=== PATIENT | female | born 1985 | race Caucasian/White ===

== ENCOUNTER → 2020-03-27 | Outpatient (CLI) | payer BC ==
[2020-03-27 12:33] LABS: Basophils % (A) 0 %; Eosinophils # (A) 0.1 k/uL (0-0.7); Eosinophils % (A) 2 %; HCT 44.7 % (34.0-46.0); Lymphocytes # (A) 1.9 k/uL (1.0-4.8); Lymphocytes % (A) 34 %; MCH 30.5 pg (25.0-35.0); MCHC 33.5 g/dL (31.0-37.0); MCV 91.1 fL (80.0-100.0); Mean Platelet Volume 6.8; Monocytes # (A) 0.4 k/uL (0-1.0); Monocytes % (A) 7 %; Neutrophils # (A) 2.9 k/uL (1.3-7.7); Neutrophils % (A) 52 %; Platelet Count 271 k/uL (150-450); RBC 4.91 m/uL (3.80-5.40); RDW 13.7 % (11.5-15.5); WBC 5.5 k/uL (3.8-10.6)
== END | disposition home or self-care (01) ==
LOC: LABPAT 11:29
PROVIDERS: ATTEND Obstetrics & Gynecology
DX: Z01.818 Encounter for other preprocedural examination (principal); N92.0 Excessive and frequent menstruation with regular cycle
CPT/HCPCS: 36415; 85025

== ENCOUNTER 2020-03-29 07:55 | Day surgery (SDC) | payer BC ==
[2020-03-27 14:28] VITALS: BMI 32.3
[~2020-03-29 07:55] MED LIST: DEXAMETHASONE SOD PHOSPHATE 4 MG/ML 1 ML VIAL IV ONE; HYDROmorphone 0.5 MG/0.5 ML SYRINGE IVP PRN; LACTATED RINGERS 1,000 ML IV SCH; MIDAZOLAM 2 MG/2 ML VIAL IV PRN; ONDANSETRON 4 MG/2 ML VIAL IVP ONE; Pre Op ABX Message 1 EACH MISC MISCELLANE ONE; SCOPOLAMINE 1.5MG/72HR PATCH TRANSDERM ONE
[2020-03-29] MEDS ORDERED: GLYCOPYRROLATE 0.2 MG/ML 2 ML VIAL ONE (08:56)
[2020-03-29] MEDS ORDERED: KETOROLAC 15 MG/ML 1 ML VIAL ONE (08:56)
[2020-03-29] MEDS ORDERED: SUCCINYLCHOLINE CHLORIDE 100 MG/5 ML SYR IV ONE (08:56)
[2020-03-29] MEDS ORDERED: LIDOCAINE 1% INJ 10MG/ML (20 ML MDV) ONE (08:56)
[2020-03-29] MEDS ORDERED: fentaNYL (PF) 50 MCG/ML 2 ML AMP ONE (08:56)
[2020-03-29] MEDS ORDERED: ROCURONIUM 10 MG/ML (10 ML VIAL) IV ONE (08:56)
[2020-03-29] MEDS ORDERED: NEOSTIGMINE 1 MG/ML 10 ML VIAL ONE (08:56)
[2020-03-29] MEDS ORDERED: MIDAZOLAM 2 MG/2 ML VIAL ONE (08:56)
[2020-03-29] MEDS ORDERED: PROPOFOL 10 MG/ML 20 ML VIAL IV ONE (08:56)
[2020-03-29] MEDS ORDERED: BUPIVACAINE (PF) 0.5% 30 ML VIAL SQ ONE ×2 (09:14→09:27)
[2020-03-29 09:59] VITALS: TEMP 97
[2020-03-29 10:17] VITALS: RESP 16
[2020-03-29] MEDS ORDERED: Acetaminophen-Codeine 300-30mg TAB PO PRN ×2 (10:34)
[2020-03-29] MEDS ORDERED: IBUPROFEN 600 MG TAB PO PRN (10:34)
[2020-03-29] MEDS ORDERED: SIMETHICONE 80 MG CHEWABLE PO PRN (10:34)
[2020-03-29] MEDS ORDERED: KETOROLAC 15 MG/ML 1 ML VIAL IVP PRN (10:34)
[2020-03-29] MEDS ORDERED: METOCLOPRAMIDE 5 MG/ML 2 ML VIAL IVP PRN (10:34)
[2020-03-29] MEDS ORDERED: diphenhydrAMINE 50 MG/ML 1 ML VIAL IVP PRN (10:34)
[2020-03-29] MEDS ORDERED: ONDANSETRON 4 MG/2 ML VIAL IVP PRN (10:34)
[2020-03-29] MEDS ORDERED: LACTATED RINGERS 1,000 ML IV SCH (10:45)
--- NOTE | 2020-03-29 10:45 | P.OP ---
Date of Procedure: 03/29/20 Preoperative Diagnosis: #1. Multiparity #2. Undesired fertility #3. Menorrhagia Postoperative Diagnosis: Same Procedure(s) Performed: #1. Laparoscopic bilateral tubal occlusion with Filshie clips #2. Diagnostic hysteroscopy #3. Dilation and curettage #4. NovaSure endometrial ablation Anesthesia: SHARMIN Surgeon: Clark Woodward Estimated Blood Loss (ml): 5 IV fluids (ml): 600 Urine output (ml): 20 Pathology: other (Endometrial curettings) Condition: stable Disposition: PACU Operative Findings: Preoperative pelvic examination demonstrated a roughly 5 week anteverted mobile normal shaped uterus with normal adnexa bilaterally. These findings were confirmed intraoperatively with normal uterus tubes and ovaries to inspection. There was no evidence of pathology to include endometriosis in the pelvis are otherwise. She did have some adhesions in the right upper quadrant below the level of the liver and above the level of the ileocecal junction. The appendix appeared entirely normal as did the small and large intestine viewed as well as the liver and diaphragm. The uterus sounded to 9 cm while the cervix was approximate 4 cm in length. Using the hysteroscope, the bilateral tubal ostia were seen and there was a moderate amount of shaggy endometrial tissue in the cavity. This was removed during curettage and sent for pathological diagnoses. The settings for the NovaSure tool where a length of 5.0 cm, a width of 4.4 cm for a total power 121 W. After a total run time of 80 seconds, the base unit read "procedure complete." The postprocedural hysteroscopic result appeared excellent. The patient is not a candidate for vaginal hysterectomy and would be better approached with the da Kristan approach should hysterectomy become necessary. Description of Procedure: The patient was prepped and draped in usual fashion after general endotracheal anesthesia was Mester by the anesthesiologist. A weighted speculum was placed and the bladder was drained of approximately 20 mL of clear vera urine. The anterior lip of the cervix was grasped with a single-tooth tenaculum. An acorn cannula was not available of. As result, a sponge stick was placed in the vagina for manipulation along with the single-tooth tenaculum. Attention was then turned to the abdomen where a 5 mm incision was made in the vertical fold of the umbilicus allowing insertion of a 5 mm optical trocar under direct visualization without difficulty. A pneumoperitoneum was established and a site selected approximately 4-5 cm above the pubic symphysis in the midline for an incision. Trendelenburg positioning was utilized. An 8 mm incision was made in the transverse plane allowing insertion of an 8 mm trocar under direct vision station without difficulty. The blunt probe was used to further remove the b owel from the pelvis. The findings are as noted above with no evidence of any pathology. The uterus, tubes, and ovaries were entirely normal to inspection. The probe was replaced with a Filshie clip applicator which was utilized to place a clip across the isthmic portion of the left fallopian tube approximately 2-3 cm from the cornu of the uterus where it was firmly affixed. A similar operation was carried out on the right side without difficulty. The upper abdomen was then explored and the findings were normal as noted above. She did have a very long appendix but was otherwise normal in appearance. There was also some adhesive disease apparent between the omentum in the anterior abdominal wall above the ascending colon in the right upper quadrant. The patient was then flattened then the the pneumoperitoneum completely evacuated through the ports. The ports were then removed and the incisions closed with interrupted stitches of 4-0 Vicryl followed by Band-Aids. They were prior to placement of Band-Aids infused with a total of 10 mL of half percent Marcaine without epinephrine equally divided between the 2 incisions. Attention was then returned to the vagina with a sponge stick was removed and the uterus sounded to 9 cm with a roughly 4 synovators cervical length as noted above. Serial dilation was carried out to admit the diagnostic hysteroscope which was placed into the endometrial cavity with the findings as above. The bilateral tubal ostia were seen and there was a moderate amount of shaggy tissue throughout. The scope was then set aside after documentation pictures taken and a Telfa placed in the vagina onto which the endometrial curettings were drawn with a medium sharp endometrial curette. A small to moderate amount of tissue was produced. The Telfa was then passed for pathological diagnoses and the NovaSure tool placed into the endometrial cavity, opened, and seated well. The settings for the tool where a length of 5.0 cm, a width of 4.4 cm for a total power 121 W. The cavity check was attempted and passed without difficulty and the tool was enabled. The run was started and, after a total run time of 80 seconds, the tool disengaged and the base unit read "procedure complete. The tool was closed, removed, and discarded and the diagnostic hysteroscope replaced within the in vitro cavity. The result appeared to be excellent. All instrument H was then removed. There was some ongoing bleeding at the tenaculum site which was made hemostatic with pressure. Estimated blood loss for the entire case was approximate 5 mL. There were no complications. All sponge, instrument, and needle counts were correct. The patient tolerated the procedure all proceeded to the recovery room in stable condition. She is a relatively poor candidate for vaginal hysterectomy and would be better managed with a da Kristan approach should it become necessary.
[2020-03-29 12:24] VITALS: BP 108/71; PULSE 54
== END 2020-03-29 13:33 | disposition home or self-care (01) ==
LOC: OR 07:55
PROVIDERS: ATTEND Obstetrics & Gynecology
DX: Z30.2 Encounter for sterilization (principal); N92.0 Excessive and frequent menstruation with regular cycle; R45.86 Emotional lability; A60.00 Herpesviral infection of urogenital system, unspecified; F32.9 Major depressive disorder, single episode, unspecified; Z63.5 Disruption of family by separation and divorce; Z79.899 Other long term (current) drug therapy; Z88.0 Allergy status to penicillin; Z88.2 Allergy status to sulfonamides; Z87.42 Personal history of other diseases of the female genital tract; Z87.891 Personal history of nicotine dependence; Z98.890 Other specified postprocedural states
CPT/HCPCS: 81025; 88305; 58563; 58671; J2250; J1100; J2710; J2405; J2001; J3010; J1885; J0330; J2704; J1170